=== PATIENT | male | born 1960 | race Caucasian/White ===

== ENCOUNTER 2021-05-19 12:50 | Inpatient (IN) | payer BC, MEDICARE ==
[~2021-05-19] VITALS: Ht 170.2 cm; Wt 106.6 kg
[~2021-05-19 12:50] MED LIST: CIPRO500 MG PO; COZAAR25 MG PO; FLAGYL500 MG PO; HUMIRA40 MG/0.8 SQ; HUMULIN SQ; LANTUS100 UNIT/1 SQ; LEVAQUIN500 MG PO; LIPITOR TAB 1010 MG PO; PREDNISONE20 MG PO
[2021-05-19 13:52] LABS: HEMOGLOBIN 17.9 gm/dl (14.0-17.5); RED BLOOD COUNT 5.32 M/UL (4.20-5.50)
[2021-05-19 14:21] LABS: BUN/CREATININE RATIO 9 (0-10)
[2021-05-20 04:25] LABS: RED BLOOD COUNT 5.07 M/UL (4.20-5.50); WHITE BLOOD COUNT 12.6 K/UL (4.5-11.0)
[2021-05-20 04:34] LABS: BUN/CREATININE RATIO 14 (0-10)
--- NOTE | 2021-05-20 14:39 | NUR ---
05/20/21 1435 report called michael gutiérrez
[2021-05-21 07:16] LABS: HEMOGLOBIN 15.5 gm/dl (14.0-17.5); RED BLOOD COUNT 4.87 M/UL (4.20-5.50); WHITE BLOOD COUNT 10.4 K/UL (4.5-11.0)
[2021-05-21 07:32] LABS: BUN/CREATININE RATIO 12 (0-10)
== END 2021-05-21 17:42 | disposition home or self-care (01) | DRG 386 ==
LOC: ER1 12:50 → CDU 15:58 → 3 EAST 05-20 02:13 → MED SURG 4 05-20 15:02
PROVIDERS: Nurse Practitioner; Physician Assistant; ADMIT Internal Medicine
DX: K50.012 Crohn's disease of small intestine with intestinal obstruction (principal); N17.9 Acute kidney failure, unspecified; I10 Essential (primary) hypertension; E11.9 Type 2 diabetes mellitus without complications; E66.01 Morbid (severe) obesity due to excess calories; Z20.822 Contact with and (suspected) exposure to COVID-19; E86.0 Dehydration; E78.5 Hyperlipidemia, unspecified; Z85.038 Personal history of other malignant neoplasm of large intestine; Z90.49 Acquired absence of other specified parts of digestive tract; Z98.890 Other specified postprocedural states; Z88.5 Allergy status to narcotic agent; Z88.8 Allergy status to other drugs, medicaments and biological substances; Z83.3 Family history of diabetes mellitus; Z82.49 Family history of ischemic heart disease and other diseases of the circulatory system; Z80.0 Family history of malignant neoplasm of digestive organs; Z80.8 Family history of malignant neoplasm of other organs or systems; Z79.899 Other long term (current) drug therapy
CPT/HCPCS: 36415; 74018; 80048; 80053; 81001; 82150; 82550; 82553; 82962; 83690; 83735; 83874; 84100; 84484; 85025; 93005; 96374; 96375; 96376; 99285; G0378; J2270; J2405; J2550; J7030; Q9967; U0002